=== PATIENT | male | born 2000 | race African-American/Black ===

== ENCOUNTER 2021-07-15 01:08 | Emergency (ER) | payer MEDICAID ==
[~2021-07-15] VITALS: Ht 175.3 cm; Wt 75.3 kg
[2021-07-15 01:26] VITALS: BP 149/62
--- NOTE | 2021-07-15 01:30 | NUR ---
PT AMBULATED TO LOBBY TO A/W BED
[2021-07-15] MEDS ORDERED: BENC TP (02:07)
[2021-07-15] MEDS ORDERED: HYD2.5O TP (02:07)
--- NOTE | 2021-07-15 02:17 | NUR ---
PT SEEN AND EVALAUTED BY DR. PLATA. DR. PLATA PROVIDED DISCHARGE INTRUCTIONS AND MEDICATION ADMINISTRATION. RX OF BENADRYL ITCH CREAM AND HYDROCORTISONE CREAM. PT AMBULATED TO PERSONAL VEHICLE IN STABLE CONDITION.
== END 2021-07-15 02:17 | disposition home or self-care (01) ==
LOC: MED 01:08
DX: L30.9 Dermatitis, unspecified (principal); Z79.899 Other long term (current) drug therapy
CPT/HCPCS: 99282